=== PATIENT | female | born 1980 | race Caucasian/White ===

== ENCOUNTER 2020-10-27 23:55 | Emergency (ER) | payer SELFPAY ==
[2020-10-28 00:05] VITALS: BP 127/77; PULSE 96; RESP 18; TEMP 37.1; O2SAT 100
[2020-10-28] MEDS: DOXYCYCLINE HYCLATE 100 MG TABLET PO (00:10)
--- NOTE | 2020-10-28 07:00 | ED.SKABFB ---
HPI - Skin/Abscess/Foreign Bdy General Chief complaint: Skin/Abscess/Foreign Body Stated complaint: abcess on calf left side Time Seen by Provider: 10/27/20 23:57 Source: patient Mode of arrival: Ambulatory Limitations: no limitations History of Present Illness HPI narrative: 40F with history of vaping and injection of history presents with the chief complaint of abscesses on bilateral shins. She admits to having recently injected at both sites. She had the spontaneous drainage of a small abscess on her left anterior khalil. She also has some pain of right khalil, but no drainage. She admits to minimal surrounding erythema. She denies any systemic findings such as fever, chills, N/V. She admits to previous history of skin infections with MRSA. She is otherwise well and free of complaint. MD complaint: abscess/boil Onset (ago): day(s) Tetanus up to date: yes Location: LLE and RLE Severity: moderate Quality: aching Pain Consistency: constant Relieving factors: none Associated symptoms: denies other symptoms Treatments prior to arrival: attempted to drain pus at home Related Data Previous Rx's Medication Instructions Recorded albuterol sulfate [Ventolin HFA] 2 puff INH Q6HP PRN #1 ea 02/20/17 buprenorphine-naloxone 0.5 tab SUBLINGUAL QDAY #15 tab 05/01/17 nitrofurantoin monohyd/m-cryst 100 mg PO BID #10 cap 11/26/17 [Macrobid] doxycycline hyclate 100 mg PO BID #20 tab 10/28/20 Allergies Allergy/AdvReac Type Severity Reaction Status Date / Time No Known Allergies Allergy Uncoded 02/14/18 12:52 Review of Systems Constitutional Constitutional: Denies chills, Denies fatigue, Denies fever(s), Denies frequent falls, Denies lethargy and Denies weakness Eyes Eyes: Denies change in vision, Denies eye discharge, Denies irritation and Denies loss of vision ENT Ears, Nose, Mouth, and Throat: Denies change in voice, Denies dizziness, Denies neck pain, Denies sore throat and Denies throat swelling Cardiovascular Cardiovascular: Denies chest pain, Denies irregular heart rhythm, Denies lightheadedness, Denies palpitations, Denies dyspnea, Denies dyspnea on exertion and Denies orthopnea Respiratory Respiratory: Denies cough, Denies dyspnea, Denies dyspnea on exertion and Denies wheezing Gastrointestinal Gastrointestinal: Denies abdominal pain, Denies change in bowel habits, Denies diarrhea, Denies nausea and Denies vomiting Musculoskeletal Musculoskeletal: Denies neck pain and Denies numbness Integumentary/Breasts Skin/Breast: Denies pruritus, Reports erythema, Denies rash, Reports skin pain, Reports skin swelling and Reports wounds Neurologic Neurologic: Denies behavioral changes, Denies confusion, Denies dizziness, Denies frequent falls, Denies loss of vision, Denies numbness and Denies weakness Psychiatric Psychiatric: Denies anxiety, Denies behavioral changes, Denies confusion, Denies depression, Denies homicidal ideation and Denies suicidal ideation Endocrine Endocrine: Denies fatigue, Denies flushing and Denies palpitations Hematologic/Lymphatic Hematologic/Lymphatic: Denies easy bruising Allergic/Immunologic Allergic/Immunologic: Denies urticaria, Denies throat swelling and Denies wheezing Patient History tobacco type: vaping Substance Use Type: heroin Exam Narrative Exam Narrative: GEN: AOx3 and in mild distress EYES: Pupils are equal, round, and reactive to light and accommodation. Extraoccular muscles are intact bilaterally. There is no subconjunctival hemorrhage or exudate. CHEST: Lungs are clear to auscultation bilaterally and free of wheezes, rales, or rhonchi. Heart rate is regular rhythm, there are no murmurs, clicks, rubs, or gallops. There is no chest wall tenderness. ABD: Abdomen is soft and nontender. There is no guarding or rebound. Bowel sounds are normal in all 4 quadrants. There is no mass or organomegaly. EXT: Full painless ROM of all extremities with no loss of sensation or strength. SKIN: One small abscess on left anterior khalil, spontaneously drained, minimal surrounding erythema, no induration. 1.5cm area of erythema, induration. No fluctuance. No indication or need for I/D Otherwise warm, pink, and dry. No erythema or rash Initial Vital Signs Initial Vital Signs: Vital Signs Temperature 98.7 F 10/28/20 00:05 Pulse Rate 96 H 10/28/20 00:05 Respiratory Rate 18 10/28/20 00:05 Blood Pressure 127/77 10/28/20 00:05 Pulse Oximetry 100 10/28/20 00:05 Course Orders Ordered: Discontinued Medications Doxycycline Hyclate (Doxycycline Hyclate 100 Mg Tablet) 100 mg PO NOW ONE Stop: 10/28/20 00:05 Last Admin: 10/28/20 00:10 Dose: 100 mg Documented by: JOLLY Vital Signs Vital signs: Vital Signs - 8 hr 10/28/20 00:05 Temperature 98.7 F Pulse Rate 96 H Respiratory Rate 18 Blood Pressure 127/77 Pulse Oximetry 100 Discharge Plan Departure Patient Disposition: Home Clinical Impression: Abscess Instructions: DI for Skin Abscess Activity Restrictions/Additional Instructions: *You have been diagnosed with [superficial cutaneous abscess bilateral lower extremities] *What to do: *Take medications as directed: Prescription electronically transmitted to [facility] at your request *Follow up with your primary care provider in 2-3 days, call for an appointment. Let them know you were seen in the Emergency Department and that we ask that you be seen in follow up *Return to ER if you should have any new, worsening or concerning symptoms, such as [ ] Prescriptions: New doxycycline hyclate 100 mg tablet 100 mg PO BID Qty: 20 RF: 0 No Action albuterol sulfate [Ventolin HFA] 90 MCG/PUFF HFA aerosol inhaler 2 puff INH Q6HP PRNQty: 1 RF: 2 buprenorphine-naloxone 8 MG/2 MG tablet, sublingual 0.5 tab Sublingual QDAY Qty: 15 RF: 2 nitrofurantoin monohyd/m-cryst [Macrobid] 100 MG capsule 100 mg PO BID Qty: 10 RF: 0
== END 2020-10-28 00:30 | disposition home or self-care (01) ==
PROVIDERS: Emergency Provider Emergency Medicine
DX: L02.416 Cutaneous abscess of left lower limb (principal); L02.415 Cutaneous abscess of right lower limb
CPT/HCPCS: 99281; 99283

== ENCOUNTER 2022-08-30 21:33 | Emergency (ER) | payer SELFPAY ==
[2022-08-30 21:38] VITALS: BP 130/70; PULSE 84; RESP 22; TEMP 36.4; O2SAT 96; BMI 26.6
--- NOTE | 2022-08-30 22:04 | DI.CT.S_ITS ---
PROCEDURE: CT ANGIO CHEST PE PROTOCOL INDICATIONS: Dyspnea/cough/hemoptysis TECHNIQUE: After the administration of intravenous contrast, 2 mm thick sections acquired from the pulmonary apices to the posterior costophrenic angles. 3-dimensional maximum intensity projection (MIP) coronal and sagittal reformats were then acquired through the thorax. For radiation dose reduction, the following was used: automated exposure control, adjustment of mA and/or kV according to patient size. COMPARISON: [facility], CT, CT CHEST WITH CONTRAST, 01/05/2018, 12:58. FINDINGS: Image quality: Excellent. Pulmonary arteries: Pulmonary arteries are normal in size, and demonstrate no intraluminal filling defects to suggest central pulmonary embolism. Lower Neck: No lymphadenopathy by size criteria. Thyroid: Visualized thyroid demonstrates no discrete nodules. Axillae: No lymphadenopathy by size criteria. Chest Wall: There is a lobulated mass within the right breast measuring up to 3.0 x 2.4 cm in transverse dimension which appears new compared to the prior CT study. Bones: Visualized osseous structures demonstrate no suspicious lesions. Lungs and Airways: No acute consolidation. There is a right lower lobe 0.7 cm pulmonary nodule which appears similar to the prior CT. There are indistinct ground-glass opacities within the lung bases which are nonspecific but suggestive of pulmonary edema. The trachea and central airways are patent. Pleura: No pneumothorax or pleural effusions. Heart: Heart size is normal. No pericardial effusion. Thoracic Vessels: The thoracic aorta is normal in size. Mediastinum and Molly: No lymphadenopathy by size criteria. Esophagus: No wall thickening. No hiatal hernia. Abdomen: Visualized upper abdomen demonstrates multiple heterogeneous filling defects within the visualized gallbladder consistent with gallstones. No wall thickening or pericholecystic fluid. IMPRESSION: 1. No evidence of pulmonary embolism. 2. No acute airspace consolidation. 3. Lobulated right breast mass is new compared to the prior study and suspicious for neoplasm. Recommend further evaluation with mammography and dedicated breast ultrasound. Dictated by: Macario Crowley M.D. on 08/31/2022 at 0:01 Approved by: Macario Crowley M.D. on 08/31/2022 at 0:06
--- NOTE | 2022-08-30 22:05 | ED.URI ---
HPI - URI/Sore Throat General Chief Complaint: Upper Respiratory Symptoms Stated Complaint: thinks pneumonia Time Seen by Provider: 08/30/22 21:58 Source: patient Mode of arrival: Ambulatory History of Present Illness HPI Narrative: Patient here for hemoptysis/cough and occasional dyspnea. Patient states took home COVID test April 2022 and is positive for COVID. She never did see any medical providers for this. Never had x-rays or blood work done. Patient denies any history heart attack strokes or diabetes or blood clots in legs or lungs. Denies any chest pain. Has had whitish productive cough for the past 4 months but however today has had blood-tinged sputum. Is not on any blood thinners. Denies any back pain abdominal pain no syncope. No calf pain. Related Data Previous Rx's Medication Instructions Recorded albuterol sulfate 90 mcg/actuation 2 puff INH Q6HP PRN #1 ea 02/20/17 aerosol inhaler (Ventolin HFA) buprenorphine 8 mg-naloxone 2 mg 0.5 tab sublingual QDAY #15 tabs 05/01/17 sublingual tablet nitrofurantoin 100 mg PO BID #10 caps 11/26/17 monohydrate/macrocrystals 100 mg capsule (Macrobid) doxycycline hyclate 100 mg tablet 100 mg PO BID #20 tabs 10/28/20 benzonatate 100 mg capsule 100 mg PO TID PRN cough #20 caps 08/31/22 Allergies Allergy/AdvReac Type Severity Reaction Status Date / Time No Known Drug Allergies Allergy Verified 08/30/22 21:38 Review of Systems Review of Systems Narrative: GENERAL: Denies chills, fatigue, malaise, fever, sweats. HEENT: Denies sinus pain, ear pain, sore throat RESPIRATORY: Positive hemoptysis/dyspnea, cough CARDIOVASCULAR: Denies chest pain, palpitations GASTROINTESTINAL: Denies nausea, vomiting, abdominal pain : Denies dysuria, frequency, hematuria MUSCULOSKELETAL: denies muscle or bony pain SKIN: Denies rash, skin lesions NEUROLOGIC: Denies weakness, numbness ROS Unobtainable: All systems reviewed & are unremarkable except as noted in HPI and below Patient History Social History Smoking Status: Former smoker Smoking Status: Former smoker tobacco type: vaping Substance Use Type: former substance user and heroin Exam Narrative Exam Narrative: GENERAL: in no distress, not toxic not dyspneic HEAD: Normocephalic. EYES: Pupils equal round No scleral icterus. ENT: Mucous membranes moist. NECK: Trachea midline. CARDIOVASCULAR: Regular rate and rhythm without murmurs RESPIRATORY: Clear to auscultation. Breath sounds equal bilaterally. No wheezes, rales, or rhonchi. GASTROINTESTINAL: Abdomen soft, non-tender EXTREMITIES: No gross deformities. BACK: No flank tenderness. NEURO: AOx4. SKIN: Warm and dry PSYCH: Not anxious, is cooperative Initial Vital Signs Initial Vital Signs: Vital Signs Temperature 97.6 F 08/30/22 21:38 Pulse Rate 84 08/30/22 21:38 Respiratory Rate 22 08/30/22 21:38 Blood Pressure 130/70 08/30/22 21:38 Pulse Oximetry 96 08/30/22 21:38 Oxygen Delivery Method 08/30/22 21:38 Course Course Course Narrative: No new issues during course of stay Orders Ordered: ED Orders 08/30/22 22:04 CT angio chest PE protocol Stat 08/30/22 22:30 CBC Auto Diff [Complete Blood Count AUTO DIFF] Stat CMP [Comprehensive Metabolic Panel] Stat Test Serum,Qual Stat Discontinued Medications Sodium Chloride (Normal Saline 0.9%) 1,000 mls @ 1,000 mls/hr IV BOLUS ONE Stop: 08/30/22 23:02 Last Infusion: 08/31/22 00:08 Dose: 0 mls/hr Documented By: Admin: 08/30/22 22:45 Dose: 1,000 mls/hr Documented By: JACOB Reevaluation(s) Reevaluation #1: Reviewed results with patient. She is aware of the right breast mass from [address] scan abdomen and pelvis. She did not follow-up with mammogram or primary care. No family history of breast cancer. Referral for primary care and general surgery office given to patient. Cough medication prescription as well. Patient in no distress. Return precautions reviewed with her. Time: 00:37 Vital Signs Vital signs: Vital Signs - 8 hr 08/30/22 21:38 08/30/22 22:36 08/30/22 22:38 Temperature 97.6 F Pulse Rate 84 81 83 Respiratory Rate 22 Blood Pressure 130/70 Pulse Oximetry 96 96 97 Oxygen Delivery Method Room Air 08/30/22 22:38 08/30/22 22:58 08/30/22 22:58 Temperature Pulse Rate 82 Respiratory Rate Blood Pressure 131/60 121/77 Pulse Oximetry 97 Oxygen Delivery Method 08/30/22 23:00 08/30/22 23:00 08/30/22 23:30 Temperature Pulse Rate 84 Respiratory Rate Blood Pressure 113/69 117/58 L Pulse Oximetry 97 Oxygen Delivery Method 08/30/22 23:30 08/31/22 00:00 08/31/22 00:01 Temperature Pulse Rate 87 81 Respiratory Rate Blood Pressure 89/49 L Pulse Oximetry 96 95 Oxygen Delivery Method 08/31/22 00:01 08/31/22 00:30 08/31/22 00:30 Temperature Pulse Rate 85 76 Respiratory Rate Blood Pressure 91/55 L Pulse Oximetry 95 97 Oxygen Delivery Method MDM - URI/Sore Throat Differential Diagnosis Differential diagnosis: Likely upper respiratory infection, viral infection, bronchitis and other (Long-term COVID/PE/pneumonia/chronic bronchitis) Lab Data Result diagrams: 08/30/22 22:30 08/30/22 22:30 Labs: Lab Results 08/30/22 08/30/22 08/30/22 Range/Units 22:30 22:30 22:30 WBC 5.8 (4.5-11.0) X10^3/uL RBC 4.38 (4.0-5.2) X10^6/uL Hgb 12.1 (12.0-16.0) g/dL Hct 36.3 (36-46) % MCV 82.8 (80-100) fL MCH 27.6 (26-34) PG MCHC 33.3 (30-36) % RDW 14.6 (11.6-14.8) % Plt Count 245 (150-400) X10^3/uL Neut % (Auto) 52.5 (50-75) % Lymph % (Auto) 35.9 (25-40) % Gentry % (Auto) 7.7 (3-14) % Eos % (Auto) 3.3 (2-4) % Baso % (Auto) 0.6 (0-2) % Neut # (Auto) 3100 (9462-7123) /uL Lymph # (Auto) 2100 (1972-6246) /uL Gentry # (Auto) 400 (0-900) /uL Eos # (Auto) 200 (0-450) /uL Baso # (Auto) 0 (0-100) /uL Sodium 139 (137-145) mmol/L Potassium 3.9 (3.4-5.1) mmol/L Chloride 104 (98-107) mmol/L Carbon Dioxide 29 (22-32) mmol/L BUN 14 (7-17) mg/dL Creatinine 0.69 (0.52-1.04) mg/dL Estimated GFR > 60 (>60) mL/min BUN/Creatinine Ratio 20.3 (6-22) Glucose 124 H (70-100) mg/dL Calcium 8.2 L (8.4-10.2) mg/dL Total Bilirubin 0.2 (0.2-1.3) mg/dL AST 22 (14-36) IU/L ALT 17 (<35) IU/L Alkaline Phosphatase 50 (38-126) U/L Total Protein 7.1 (6.3-8.2) g/dL Albumin 3.9 (3.5-5.0) g/dL Globulin 3.2 (1.7-4.1) g/dL Albumin/Globulin Ratio 1.2 (1.0-2.8) Serum , Qual Negative (Negative) Imaging Data CT scan - chest: Radiologist's Impression: [place] [address] CT Scan Report Signed Patient: Annie Garcia MR#: [id number] : 1980 Acct:[id number] Age/Sex: 42 / F Date of Service: 08/30/22 Loc: ED Accession Number: [id number] ?? Procedure: CT angio chest PE protocol Ordering Provider: Huy Winter MD PROCEDURE:? CT ANGIO CHEST PE PROTOCOL ? INDICATIONS:? Dyspnea/cough/hemoptysis ? TECHNIQUE:? After the administration of intravenous contrast, 2 mm thick sections acquired from the pulmonary apices to the posterior costophrenic angles.? 3-dimensional maximum intensity projection (MIP) coronal and sagittal reformats were then acquired through the thorax.? For radiation dose reduction, the following was used:? automated exposure control, adjustment of mA and/or kV according to patient size.? ? COMPARISON:? [facility], CT, CT CHEST WITH CONTRAST, 01/05/2018, 12:58. ? FINDINGS:? Image quality:? Excellent.? ? Pulmonary arteries:? Pulmonary arteries are normal in size, and demonstrate no intraluminal filling defects to suggest central pulmonary embolism.? ? Lower Neck: No lymphadenopathy by size criteria. Thyroid:? Visualized thyroid demonstrates no discrete nodules. Axillae: No lymphadenopathy by size criteria. Chest Wall:? There is a lobulated mass within the right breast measuring up to 3.0 x 2.4 cm in transverse dimension which appears new compared to the prior CT study. Bones: Visualized osseous structures demonstrate no suspicious lesions. ? Lungs and Airways:? No acute consolidation.? There is a right lower lobe 0.7 cm pulmonary nodule which appears similar to the prior CT.? There are indistinct ground-glass opacities within the lung bases which are nonspecific but suggestive of pulmonary edema.? The trachea and central airways are patent. Pleura: No pneumothorax or pleural effusions.? ? Heart: Heart size is normal.? No pericardial effusion. Thoracic Vessels: The thoracic aorta is normal in size.? Mediastinum and Molly: No lymphadenopathy by size criteria. Esophagus: No wall thickening. No hiatal hernia. ? Abdomen:? Visualized upper abdomen demonstrates multiple heterogeneous filling defects within the visualized gallbladder consistent with gallstones.? No wall thickening or pericholecystic fluid. ? IMPRESSION:? ? 1. No evidence of pulmonary embolism. ? 2. No acute airspace consolidation. ? 3. Lobulated right breast mass is new compared to the prior study and suspicious for neoplasm.? Recommend further evaluation with mammography and dedicated breast ultrasound. ? ? ? Dictated by: Macario Crowley M.D. on 08/31/2022 at 0:01 ? ? Approved by: Macario Crowley M.D. on 08/31/2022 at 0:06 ? MDM Narrative Medical decision making narrative: Appropriate for discharge home. Exam and laboratory studies and imaging otherwise reassuring. Not toxic at discharge. I did review with patient concerning finding on CT scan of the right breast, no family history of breast cancer but patient states she did not follow up with mammogram after she was told of the findings [address] scan abdomen pelvis. She does not have a family doctor, I did give a referral to General surgery as well as primary care referral line. Not toxic at discharge, return precautions reviewed with her. She desires discharge home. Discharge Plan Departure Patient Disposition: Home Clinical Impression: Bronchitis, Breast mass, right Instructions: DI for Chronic Bronchitis, DI for Breast Mass -- Uncertain Cause Activity Restrictions/Additional Instructions: See family doctor within a week for re-evaluation breast finding on CT scan. Call provided primary care referral phone number to establish family doctor. Call [phone], or call provided general surgery office/provider, you will need to schedule outpatient mammogram. Cough medication has been sent to your pharmacy to [facility] in the morning. Return if worse if any questions or concerns. Prescriptions: New benzonatate 100 mg capsule 100 mg PO TID PRN (Reason: cough) Qty: 20 0RF No Action albuterol sulfate [Ventolin HFA] 90 MCG/PUFF HFA aerosol inhaler 2 puff INH Q6HP PRNQty: 1 2RF buprenorphine-naloxone 8 MG/2 MG tablet, sublingual 0.5 tab Sublingual QDAY Qty: 15 2RF nitrofurantoin monohyd/m-cryst [Macrobid] 100 MG capsule 100 mg PO BID Qty: 10 0RF doxycycline hyclate 100 mg tablet 100 mg PO BID Qty: 20 0RF Referrals: Prince Wilder MD [Physician] - Visit Report Forms: Patient Portal/API
[2022-08-30 22:36] VITALS: PULSE 81; O2SAT 96
[2022-08-30 22:38] VITALS: BP 131/60; PULSE 83; O2SAT 97
[2022-08-30] MEDS: SODIUM CHLORIDE 0.9% 1,000 ML 1000 ML IV (22:45)
[2022-08-30 22:48] LABS: Add Manual Diff / Slide Review NO; Basophils Absolute Auto 0 /uL (0-100); Basophils Percent Auto 0.6 % (0-2); Eosinophils Absolute Auto 200 /uL (0-450); Eosinophils Percent Auto 3.3 % (2-4); Hematocrit 36.3 % (36-46); Hemoglobin 12.1 g/dL (12.0-16.0); Lymphocytes Absolute Auto 2100 /uL (1100-4500); Lymphocytes Percent Auto 35.9 % (25-40); Mean Corpuscular HGB Conc 33.3 % (30-36); Mean Corpuscular Hemoglobin 27.6 PG (26-34); Mean Corpuscular Volume 82.8 fL (80-100); Monocytes Absolute Auto 400 /uL (0-900); Monocytes Percent Auto 7.7 % (3-14); Neutrophils Absolute Auto 3100 /uL (1500-7000); Neutrophils Percent Auto 52.5 % (50-75); Platelet Count 245 X10^3/uL (150-400); Red Blood Cell Count 4.38 X10^6/uL (4.0-5.2); Red Cell Distribution Width 14.6 % (11.6-14.8); White Blood Cell Count 5.8 X10^3/uL (4.5-11.0)
[2022-08-30 22:54] LABS: Alanine Aminotransferase 17 IU/L (<35); Albumin 3.9 g/dL (3.5-5.0); Albumin Globulin Ratio 1.2 (1.0-2.8); Alkaline Phosphatase 50 U/L (38-126); Aspartate Aminotransferase 22 IU/L (14-36); BUN Creatinine Ratio 20.3 (6-22); Bilirubin Total 0.2 mg/dL (0.2-1.3); Blood Urea Nitrogen 14 mg/dL (7-17); Calcium 8.2 mg/dL (8.4-10.2); Carbon Dioxide 29 mmol/L (22-32); Chloride 104 mmol/L (98-107); Estimated Glomerular Filt Rate > 60 mL/min (>60); Globulin 3.2 g/dL (1.7-4.1); Glucose 124 mg/dL (70-100); HEMOLYSIS < 15 (0-50); Potassium 3.9 mmol/L (3.4-5.1); Sodium 139 mmol/L (137-145); Total Protein 7.1 g/dL (6.3-8.2)
[2022-08-30 22:58] VITALS: BP 121/77; PULSE 82; O2SAT 97
[2022-08-30 23:00] VITALS: BP 113/69; PULSE 84; O2SAT 97
[2022-08-30 23:05] LABS: Pregnancy Test Serum,Qual Negative (Negative)
[2022-08-30 23:30] VITALS: BP 117/58; PULSE 87; O2SAT 96
[2022-08-31] VITALS: PULSE 81; O2SAT 95
[2022-08-31 00:01] VITALS: BP 89/49; PULSE 85; O2SAT 95
[2022-08-31 00:30] VITALS: BP 91/55; PULSE 76; O2SAT 97
== END 2022-08-31 00:49 | disposition home or self-care (01) ==
PROVIDERS: Emergency Provider Emergency Medicine
DX: J40 Bronchitis, not specified as acute or chronic (principal); N63.10 Unspecified lump in the right breast, unspecified quadrant; Z86.16 Personal history of COVID-19
CPT/HCPCS: 36415; 71275; 80053; 84703; 85025; 99284; Q9967

== ENCOUNTER 2022-09-10 01:03 | Inpatient (IN) | payer SELFPAY ==
[2022-09-10] VITALS (58 sets, daily range): BP systolic 101–137; BP diastolic 53–96; PULSE 79–130; RESP 16–40; TEMP 37–37.6; O2SAT 89–100; BMI 26.6; BMI 29.1
--- NOTE | 2022-09-10 01:28 | DI.RAD.S_ITS ---
PROCEDURE: XR CHEST 2V INDICATIONS: shortness of breath TECHNIQUE: 2 views of the chest were acquired. COMPARISON: [facility], , CHEST 2 VIEW, 04/10/2012, 10:37. FINDINGS: Surgical changes and devices: None. Lungs and pleura: Lungs are clear. No pleural effusions or pneumothorax. Mediastinum: Mediastinal contours are normal. Heart size is normal. Bones and chest wall: No suspicious bony abnormalities. Soft tissues appear unremarkable. IMPRESSION: No acute cardiopulmonary findings Approved by: Ezekiel Mcarthur M.D. on 09/10/2022 at 7:42
[2022-09-10] MEDS: ALBUTEROL 2.5 MG/3 ML NEB (ADULT) INH (02:01)
--- NOTE | 2022-09-10 02:02 | ED.SOB ---
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 Parainfluenza 1 (PCR) Not detected (Not Detect) Parainfluenza 2 (PCR) Not detected (Not Detect) Parainfluenza 3 (PCR) Not detected (Not Detect) Parainfluenza 4 (PCR) Not detected (Not Detect) RSV (PCR) Not detected (Not Detect) Entero/Rhino (PCR) Not detected (Not Detect) 09/10/22 09/10/22 09/10/22 Range/Units 06:38 11:30 13:30 WBC (4.5-11.0) X10^3/uL RBC (4.0-5.2) X10^6/uL Hgb (12.0-16.0) g/dL Hct (36-46) % MCV (80-100) fL MCH (26-34) PG MCHC (30-36) % RDW (11.6-14.8) % Plt Count (150-400) X10^3/uL Neut % (Auto) (50-75) % Lymph % (Auto) (25-40) % [place] % (Auto) (3-14) % Eos % (Auto) (2-4) % Baso % (Auto) (0-2) % Neut # (Auto) (3400-8391) /uL Lymph # (Auto) (3653-2661) /uL [place] # (Auto) (0-900) /uL Eos # (Auto) (0-450) /uL Baso # (Auto) (0-100) /uL APTT 85 H* D (26-36) SECONDS D-Dimer (<500) ng/ml ABG pH (7.35-7.45) ABG pCO2 (35-45) mmHg ABG pO2 (80-100) mmHg ABG HCO3 (22-26) mmol/L ABG Total CO2 (21-31) mmol/L ABG O2 Saturation (95-100) % ABG Base Excess (-2-2) mmol/L FiO2 Sodium (137-145) mmol/L Potassium (3.4-5.1) mmol/L Chloride (98-107) mmol/L Carbon Dioxide (22-32) mmol/L BUN (7-17) mg/dL Creatinine (0.52-1.04) mg/dL Estimated GFR (>60) mL/min BUN/Creatinine Ratio (6-22) Glucose (70-100) mg/dL Lactate (0.7-2.1) mmol/L Calcium (8.4-10.2) mg/dL Total Bilirubin (0.2-1.3) mg/dL AST (14-36) IU/L ALT (<35) IU/L Alkaline Phosphatase (38-126) U/L Total Creatine Kinase (30-135) U/L CK-MB (CK-2) CK-MB (CK-2) Rel Index Troponin I < 0.012 (0.01-0.034) ng/mL NT-Pro-B Natriuret Pep (<125) pg/mL Total Protein (6.3-8.2) g/dL Albumin (3.5-5.0) g/dL Globulin (1.7-4.1) g/dL Albumin/Globulin Ratio (1.0-2.8) Lipase (23-300) U/L Serum , Qual Negative (Negative) Chlamy pneumoniae PCR (Not Detect) Adenovirus (PCR) (Not Detect) B. pertussis DNA (PCR) (Not Detecte) B.parapertussis DNA PCR (Not Detecte) Coronavirus OC43 (PCR) (Not Detect) Coronavirus HKU1 (PCR) (Not Detect) Coronavirus 229E (PCR) (Not Detect) SARS-CoV-2 (PCR) (Not Detecte) Coronavirus NL63 (PCR) (Not Detect) Human Metapneumovir PCR (Not Detect) Influenza Type A (PCR) (Not Detect) Influenza Type B (PCR) (Not Detect) M. pneumoniae (PCR) (Not Detect) Parainfluenza 1 (PCR) (Not Detect) Parainfluenza 2 (PCR) (Not Detect) Parainfluenza 3 (PCR) (Not Detect) Parainfluenza 4 (PCR) (Not Detect) RSV (PCR) (Not Detect) Entero/Rhino (PCR) (Not Detect) 09/10/22 Range/Units 13:47 WBC (4.5-11.0) X10^3/uL RBC (4.0-5.2) X10^6/uL Hgb (12.0-16.0) g/dL Hct (36-46) % MCV (80-100) fL MCH (26-34) PG MCHC (30-36) % RDW (11.6-14.8) % Plt Count (150-400) X10^3/uL Neut % (Auto) (50-75) % Lymph % (Auto) (25-40) % [place] % (Auto) (3-14) % Eos % (Auto) (2-4) % Baso % (Auto) (0-2) % Neut # (Auto) (7437-9410) /uL Lymph # (Auto) (1118-5891) /uL [place] # (Auto) (0-900) /uL Eos # (Auto) (0-450) /uL Baso # (Auto) (0-100) /uL APTT (26-36) SECONDS D-Dimer (<500) ng/ml ABG pH 7.43 (7.35-7.45) ABG pCO2 36.5 (35-45) mmHg ABG pO2 74 L (80-100) mmHg ABG HCO3 24 (22-26) mmol/L ABG Total CO2 25 (21-31) mmol/L ABG O2 Saturation 95 (95-100) % ABG Base Excess 0.0 (-2-2) mmol/L FiO2 75 Sodium (137-145) mmol/L Potassium (3.4-5.1) mmol/L Chloride (98-107) mmol/L Carbon Dioxide (22-32) mmol/L BUN (7-17) mg/dL Creatinine (0.52-1.04) mg/dL Estimated GFR (>60) mL/min BUN/Creatinine Ratio (6-22) Glucose (70-100) mg/dL Lactate (0.7-2.1) mmol/L Calcium (8.4-10.2) mg/dL Total Bilirubin (0.2-1.3) mg/dL AST (14-36) IU/L ALT (<35) IU/L Alkaline Phosphatase (38-126) U/L Total Creatine Kinase (30-135) U/L CK-MB (CK-2) CK-MB (CK-2) Rel Index Troponin I (0.01-0.034) ng/mL NT-Pro-B Natriuret Pep (<125) pg/mL Total Protein (6.3-8.2) g/dL Albumin (3.5-5.0) g/dL Globulin (1.7-4.1) g/dL Albumin/Globulin Ratio (1.0-2.8) Lipase (23-300) U/L Serum , Qual (Negative) Chlamy pneumoniae PCR (Not Detect) Adenovirus (PCR) (Not Detect) B. pertussis DNA (PCR) (Not Detecte) B.parapertussis DNA PCR (Not Detecte) Coronavirus OC43 (PCR) (Not Detect) Coronavirus HKU1 (PCR) (Not Detect) Coronavirus 229E (PCR) (Not Detect) SARS-CoV-2 (PCR) (Not Detecte) Coronavirus NL63 (PCR) (Not Detect) Human Metapneumovir PCR (Not Detect) Influenza Type A (PCR) (Not Detect) Influenza Type B (PCR) (Not Detect) M. pneumoniae (PCR) (Not Detect) Parainfluenza 1 (PCR) (Not Detect) Parainfluenza 2 (PCR) (Not Detect) Parainfluenza 3 (PCR) (Not Detect) Parainfluenza 4 (PCR) (Not Detect) RSV (PCR) (Not Detect) Entero/Rhino (PCR) (Not Detect) Imaging Data Chest x-ray: Radiologist's Impression: No airspace disease, bronchial wall thickening which is nonspecific. ECG Data Attestation: I personally reviewed and interpreted this ECG as follows: Prior ECG tracings: not available for review Interpretation: Sinus rhythm rate 87 AL 152 QRS is 78 QTC 450. No acute ST elevation or depression appreciated. No prior for comparison MDM Narrative Medical decision making narrative: Patient does have some improvement in her breathing with albuterol. Plan for DuoNeb, 20 mg albuterol and Solu-Medrol. Respiratory panel, cardiac workup including D-dimer. Patient did have a CTA which was negative the end of August but patient is having some hypoxia with no known asthma history. She does have a history of vaping so this could be contributing. Chest x-ray does not show obvious pneumothorax or acute process, some nonspecific bronchial wall thickening. Patient had improvement of her symptoms with albuterol, DuoNeb and Solu-Medrol but is still hypoxic placed on oxygen but was still hypoxic was placed on high-flow O2 and had ABG prior to this which shows primary respiratory alkalosis with a PO2 of 59, pH of 7.427, pCO2 of 37 and bicarb of 24. Patient's troponin and BNP are not elevated D-dimer is 707, patient's CBC, CMP and respiratory panel do not show clear source. Lactate was negative. Patient did have some wheeze on exam and it has improved with nebs. She is moving air appropriately on examination. We had difficulty with IV access so unable to obtain CT PE but patient was initiated on heparin for potential pulmonary emboli, respiratory panel is negative today for COVID, influenza or other viral illnesses. Patient has some discomfort with pressure from the high-flow but she states her breathing feels much improved. She did have some pain medicine in her back discomfort resolved. Plan for admission to ICU, we did difficulty with IV access for CT PE but patient does have an IV. She is receiving heparin. She is much more comfortable currently on high-flow on repeat evaluation and awaiting DI service for mid or PICC line to be placed. Discussed with hospitalist service, nurse practitioner Oswald, she asked that we hold the patient until CT angio was obtained in case there is right heart strain and a large PE that would require intervention as this would require transfer. Patient signed out to Dr. Frankel while awaiting DI for additional access and CTA. <Briseida Frankle, DO - Last Filed: 09/10/22 15:12> Lab Data Labs: Lab Results 09/10/22 09/10/22 09/10/22 Range/Units 02:24 02:24 02:24 WBC 10.1 (4.5-11.0) X10^3/uL RBC 4.78 (4.0-5.2) X10^6/uL Hgb 13.2 (12.0-16.0) g/dL Hct 40.0 (36-46) % MCV 83.6 (80-100) fL MCH 27.5 (26-34) PG MCHC 32.9 (30-36) % RDW 14.3 (11.6-14.8) % Plt Count 288 (150-400) X10^3/uL Neut % (Auto) 68.9 (50-75) % Lymph % (Auto) 23.1 L (25-40) % [place] % (Auto) 4.7 (3-14) % Eos % (Auto) 1.3 L (2-4) % Baso % (Auto) 2.0 (0-2) % Neut # (Auto) 6900 (5092-5172) /uL Lymph # (Auto) 2300 (5399-1141) /uL [place] # (Auto) 500 (0-900) /uL Eos # (Auto) 100 (0-450) /uL Baso # (Auto) 200 H (0-100) /uL APTT (26-36) SECONDS D-Dimer (<500) ng/ml ABG pH (7.35-7.45) ABG pCO2 (35-45) mmHg ABG pO2 (80-100) mmHg ABG HCO3 (22-26) mmol/L ABG Total CO2 (21-31) mmol/L ABG O2 Saturation (95-100) % ABG Base Excess (-2-2) mmol/L FiO2 Sodium 139 (137-145) mmol/L Potassium 4.0 (3.4-5.1) mmol/L Chloride 102 (98-107) mmol/L Carbon Dioxide 28 (22-32) mmol/L BUN 16 (7-17) mg/dL Creatinine 0.74 (0.52-1.04) mg/dL Estimated GFR > 60 (>60) mL/min BUN/Creatinine Ratio 21.6 (6-22) Glucose 107 H (70-100) mg/dL Lactate 0.9 (0.7-2.1) mmol/L Calcium 8.7 (8.4-10.2) mg/dL Total Bilirubin 0.4 (0.2-1.3) mg/dL AST 24 (14-36) IU/L ALT 17 (<35) IU/L Alkaline Phosphatase 69 (38-126) U/L Total Creatine Kinase (30-135) U/L CK-MB (CK-2) CK-MB (CK-2) Rel Index Troponin I (0.01-0.034) ng/mL NT-Pro-B Natriuret Pep (<125) pg/mL Total Protein 8.2 (6.3-8.2) g/dL Albumin 4.4 (3.5-5.0) g/dL Globulin 3.8 (1.7-4.1) g/dL Albumin/Globulin Ratio 1.2 (1.0-2.8) Lipase (23-300) U/L Serum , Qual (Negative) Chlamy pneumoniae PCR (Not Detect) Adenovirus (PCR) (Not Detect) B. pertussis DNA (PCR) (Not Detecte) B.parapertussis DNA PCR (Not Detecte) Coronavirus OC43 (PCR) (Not Detect) Coronavirus HKU1 (PCR) (Not Detect) Coronavirus 229E (PCR) (Not Detect) SARS-CoV-2 (PCR) (Not Detecte) Coronavirus NL63 (PCR) (Not Detect) Human Metapneumovir PCR (Not Detect) Influenza Type A (PCR) (Not Detect) Influenza Type B (PCR) (Not Detect) M. pneumoniae (PCR) (Not Detect) Parainfluenza 1 (PCR) (Not Detect) Parainfluenza 2 (PCR) (Not Detect) Parainfluenza 3 (PCR) (Not Detect) Parainfluenza 4 (PCR) (Not Detect) RSV (PCR) (Not Detect) Entero/Rhino (PCR) (Not Detect) 09/10/22 09/10/22 09/10/22 Range/Units 02:24 02:24 02:24 WBC (4.5-11.0) X10^3/uL RBC (4.0-5.2) X10^6/uL Hgb (12.0-16.0) g/dL Hct (36-46) % MCV (80-100) fL MCH (26-34) PG MCHC (30-36) % RDW (11.6-14.8) % Plt Count (150-400) X10^3/uL Neut % (Auto) (50-75) % Lymph % (Auto) (25-40) % [place] % (Auto) (3-14) % Eos % (Auto) (2-4) % Baso % (Auto) (0-2) % Neut # (Auto) (8772-8164) /uL Lymph # (Auto) (7076-5932) /uL [place] # (Auto) (0-900) /uL Eos # (Auto) (0-450) /uL Baso # (Auto) (0-100) /uL APTT (26-36) SECONDS D-Dimer 707 H (<500) ng/ml ABG pH (7.35-7.45) ABG pCO2 (35-45) mmHg ABG pO2 (80-100) mmHg ABG HCO3 (22-26) mmol/L ABG Total CO2 (21-31) mmol/L ABG O2 Saturation (95-100) % ABG Base Excess (-2-2) mmol/L FiO2 Sodium (137-145) mmol/L Potassium (3.4-5.1) mmol/L Chloride (98-107) mmol/L Carbon Dioxide (22-32) mmol/L BUN (7-17) mg/dL Creatinine (0.52-1.04) mg/dL Estimated GFR (>60) mL/min BUN/Creatinine Ratio (6-22) Glucose (70-100) mg/dL Lactate (0.7-2.1) mmol/L Calcium (8.4-10.2) mg/dL Total Bilirubin (0.2-1.3) mg/dL AST (14-36) IU/L ALT (<35) IU/L Alkaline Phosphatase (38-126) U/L Total Creatine Kinase 58 (30-135) U/L CK-MB (CK-2) TNP CK-MB (CK-2) Rel Index TNP Troponin I < 0.012 (0.01-0.034) ng/mL NT-Pro-B Natriuret Pep 20 (<125) pg/mL Total Protein (6.3-8.2) g/dL Albumin (3.5-5.0) g/dL Globulin (1.7-4.1) g/dL Albumin/Globulin Ratio (1.0-2.8) Lipase 88 (23-300) U/L Serum , Qual (Negative) Chlamy pneumoniae PCR (Not Detect) Adenovirus (PCR) (Not Detect) B. pertussis DNA (PCR) (Not Detecte) B.parapertussis DNA PCR (Not Detecte) Coronavirus OC43 (PCR) (Not Detect) Coronavirus HKU1 (PCR) (Not Detect) Coronavirus 229E (PCR) (Not Detect) SARS-CoV-2 (PCR) (Not Detecte) Coronavirus NL63 (PCR) (Not Detect) Human Metapneumovir PCR (Not Detect) Influenza Type A (PCR) (Not Detect) Influenza Type B (PCR) (Not Detect) M. pneumoniae (PCR) (Not Detect) Parainfluenza 1 (PCR) (Not Detect) Parainfluenza 2 (PCR) (Not Detect) Parainfluenza 3 (PCR) (Not Detect) Parainfluenza 4 (PCR) (Not Detect) RSV (PCR) (Not Detect) Entero/Rhino (PCR) (Not Detect) 09/10/22 09/10/22 09/10/22 Range/Units 02:24 02:24 03:28 WBC (4.5-11.0) X10^3/uL RBC (4.0-5.2) X10^6/uL Hgb (12.0-16.0) g/dL Hct (36-46) % MCV (80-100) fL MCH (26-34) PG MCHC (30-36) % RDW (11.6-14.8) % Plt Count (150-400) X10^3/uL Neut % (Auto) (50-75) % Lymph % (Auto) (25-40) % [place] % (Auto) (3-14) % Eos % (Auto) (2-4) % Baso % (Auto) (0-2) % Neut # (Auto) (1402-2061) /uL Lymph # (Auto) (4065-3058) /uL [place] # (Auto) (0-900) /uL Eos # (Auto) (0-450) /uL Baso # (Auto) (0-100) /uL APTT 25 L (26-36) SECONDS D-Dimer (<500) ng/ml ABG pH 7.43 (7.35-7.45) ABG pCO2 37.3 (35-45) mmHg ABG pO2 59 L (80-100) mmHg ABG HCO3 25 (22-26) mmol/L ABG Total CO2 26 (21-31) mmol/L ABG O2 Saturation 91 L (95-100) % ABG Base Excess 0.0 (-2-2) mmol/L FiO2 Sodium (137-145) mmol/L Potassium (3.4-5.1) mmol/L Chloride (98-107) mmol/L Carbon Dioxide (22-32) mmol/L BUN (7-17) mg/dL Creatinine (0.52-1.04) mg/dL Estimated GFR (>60) mL/min BUN/Creatinine Ratio (6-22) Glucose (70-100) mg/dL Lactate (0.7-2.1) mmol/L Calcium (8.4-10.2) mg/dL Total Bilirubin (0.2-1.3) mg/dL AST (14-36) IU/L ALT (<35) IU/L Alkaline Phosphatase (38-126) U/L Total Creatine Kinase (30-135) U/L CK-MB (CK-2) CK-MB (CK-2) Rel Index Troponin I (0.01-0.034) ng/mL NT-Pro-B Natriuret Pep (<125) pg/mL Total Protein (6.3-8.2) g/dL Albumin (3.5-5.0) g/dL Globulin (1.7-4.1) g/dL Albumin/Globulin Ratio (1.0-2.8) Lipase (23-300) U/L Serum , Qual (Negative) Chlamy pneumoniae PCR Not detected (Not Detect) Adenovirus (PCR) Not detected (Not Detect) B. pertussis DNA (PCR) Not detected (Not Detecte) B.parapertussis DNA PCR Not detected (Not Detecte) Coronavirus OC43 (PCR) Not detected (Not Detect) Coronavirus HKU1 (PCR) Not detected (Not Detect) Coronavirus 229E (PCR) Not detected (Not Detect) SARS-CoV-2 (PCR) Not detected (Not Detecte) Coronavirus NL63 (PCR) Not detected (Not Detect) Human Metapneumovir PCR Not detected (Not Detect) Influenza Type A (PCR) Not detected (Not Detect) Influenza Type B (PCR) Not detected (Not Detect) M. pneumoniae (PCR) Not detected (Not Detect) Parainfluenza 1 (PCR) Not detected (Not Detect) Parainfluenza 2 (PCR) Not detected (Not Detect) Parainfluenza 3 (PCR) Not detected (Not Detect) Parainfluenza 4 (PCR) Not detected (Not Detect) RSV (PCR) Not detected (Not Detect) Entero/Rhino (PCR) Not detected (Not Detect) 09/10/22 09/10/22 09/10/22 Range/Units 06:38 11:30 13:30 WBC (4.5-11.0) X10^3/uL RBC (4.0-5.2) X10^6/uL Hgb (12.0-16.0) g/dL Hct (36-46) % MCV (80-100) fL MCH (26-34) PG MCHC (30-36) % RDW (11.6-14.8) % Plt Count (150-400) X10^3/uL Neut % (Auto) (50-75) % Lymph % (Auto) (25-40) % [place] % (Auto) (3-14) % Eos % (Auto) (2-4) % Baso % (Auto) (0-2) % Neut # (Auto) (7545-0029) /uL Lymph # (Auto) (1906-4397) /uL [place] # (Auto) (0-900) /uL Eos # (Auto) (0-450) /uL Baso # (Auto) (0-100) /uL APTT 85 H* D (26-36) SECONDS D-Dimer (<500) ng/ml ABG pH (7.35-7.45) ABG pCO2 (35-45) mmHg ABG pO2 (80-100) mmHg ABG HCO3 (22-26) mmol/L ABG Total CO2 (21-31) mmol/L ABG O2 Saturation (95-100) % ABG Base Excess (-2-2) mmol/L FiO2 Sodium (137-145) mmol/L Potassium (3.4-5.1) mmol/L Chloride (98-107) mmol/L Carbon Dioxide (22-32) mmol/L BUN (7-17) mg/dL Creatinine (0.52-1.04) mg/dL Estimated GFR (>60) mL/min BUN/Creatinine Ratio (6-22) Glucose (70-100) mg/dL Lactate (0.7-2.1) mmol/L Calcium (8.4-10.2) mg/dL Total Bilirubin (0.2-1.3) mg/dL AST (14-36) IU/L ALT (<35) IU/L Alkaline Phosphatase (38-126) U/L Total Creatine Kinase (30-135) U/L CK-MB (CK-2) CK-MB (CK-2) Rel Index Troponin I < 0.012 (0.01-0.034) ng/mL NT-Pro-B Natriuret Pep (<125) pg/mL Total Protein (6.3-8.2) g/dL Albumin (3.5-5.0) g/dL Globulin (1.7-4.1) g/dL Albumin/Globulin Ratio (1.0-2.8) Lipase (23-300) U/L Serum , Qual Negative (Negative) Chlamy pneumoniae PCR (Not Detect) Adenovirus (PCR) (Not Detect) B. pertussis DNA (PCR) (Not Detecte) B.parapertussis DNA PCR (Not Detecte) Coronavirus OC43 (PCR) (Not Detect) Coronavirus HKU1 (PCR) (Not Detect) Coronavirus 229E (PCR) (Not Detect) SARS-CoV-2 (PCR) (Not Detecte) Coronavirus NL63 (PCR) (Not Detect) Human Metapneumovir PCR (Not Detect) Influenza Type A (PCR) (Not Detect) Influenza Type B (PCR) (Not Detect) M. pneumoniae (PCR) (Not Detect) Parainfluenza 1 (PCR) (Not Detect) Parainfluenza 2 (PCR) (Not Detect) Parainfluenza 3 (PCR) (Not Detect) Parainfluenza 4 (PCR) (Not Detect) RSV (PCR) (Not Detect) Entero/Rhino (PCR) (Not Detect) 09/10/22 Range/Units 13:47 WBC (4.5-11.0) X10^3/uL RBC (4.0-5.2) X10^6/uL Hgb (12.0-16.0) g/dL Hct (36-46) % MCV (80-100) fL MCH (26-34) PG MCHC (30-36) % RDW (11.6-14.8) % Plt Count (150-400) X10^3/uL Neut % (Auto) (50-75) % Lymph % (Auto) (25-40) % [place] % (Auto) (3-14) % Eos % (Auto) (2-4) % Baso % (Auto) (0-2) % Neut # (Auto) (5597-7621) /uL Lymph # (Auto) (9397-4762) /uL [place] # (Auto) (0-900) /uL Eos # (Auto) (0-450) /uL Baso # (Auto) (0-100) /uL APTT (26-36) SECONDS D-Dimer (<500) ng/ml ABG pH 7.43 (7.35-7.45) ABG pCO2 36.5 (35-45) mmHg ABG pO2 74 L (80-100) mmHg ABG HCO3 24 (22-26) mmol/L ABG Total CO2 25 (21-31) mmol/L ABG O2 Saturation 95 (95-100) % ABG Base Excess 0.0 (-2-2) mmol/L FiO2 75 Sodium (137-145) mmol/L Potassium (3.4-5.1) mmol/L Chloride (98-107) mmol/L Carbon Dioxide (22-32) mmol/L BUN (7-17) mg/dL Creatinine (0.52-1.04) mg/dL Estimated GFR (>60) mL/min BUN/Creatinine Ratio (6-22) Glucose (70-100) mg/dL Lactate (0.7-2.1) mmol/L Calcium (8.4-10.2) mg/dL Total Bilirubin (0.2-1.3) mg/dL AST (14-36) IU/L ALT (<35) IU/L Alkaline Phosphatase (38-126) U/L Total Creatine Kinase (30-135) U/L CK-MB (CK-2) CK-MB (CK-2) Rel Index Troponin I (0.01-0.034) ng/mL NT-Pro-B Natriuret Pep (<125) pg/mL Total Protein (6.3-8.2) g/dL Albumin (3.5-5.0) g/dL Globulin (1.7-4.1) g/dL Albumin/Globulin Ratio (1.0-2.8) Lipase (23-300) U/L Serum , Qual (Negative) Chlamy pneumoniae PCR (Not Detect) Adenovirus (PCR) (Not Detect) B. pertussis DNA (PCR) (Not Detecte) B.parapertussis DNA PCR (Not Detecte) Coronavirus OC43 (PCR) (Not Detect) Coronavirus HKU1 (PCR) (Not Detect) Coronavirus 229E (PCR) (Not Detect) SARS-CoV-2 (PCR) (Not Detecte) Coronavirus NL63 (PCR) (Not Detect) Human Metapneumovir PCR (Not Detect) Influenza Type A (PCR) (Not Detect) Influenza Type B (PCR) (Not Detect) M. pneumoniae (PCR) (Not Detect) Parainfluenza 1 (PCR) (Not Detect) Parainfluenza 2 (PCR) (Not Detect) Parainfluenza 3 (PCR) (Not Detect) Parainfluenza 4 (PCR) (Not Detect) RSV (PCR) (Not Detect) Entero/Rhino (PCR) (Not Detect) Imaging Data CT scan - chest: Radiologist's Impression: nt: Annie Garcia MR#: [id number] : 1980 Acct:[id number] Age/Sex: 42 / F Date of Service: 09/10/22 Loc: ED Accession Number: [id number] ?? Procedure: CT angio chest PE protocol Ordering Provider: Briseida Frankel D.O. PROCEDURE:? CT ANGIO CHEST PE PROTOCOL ? INDICATIONS:? severe hypoxia ? TECHNIQUE:? After the administration of intravenous contrast, 2 mm thick sections acquired from the pulmonary apices to the posterior costophrenic angles.? For radiation dose reduction, the following was used:? automated exposure control, adjustment of mA and/or kV according to patient size.? ? COMPARISON:? [facility], CT, CT ANGIO CHEST PE PROTOCOL, 08/30/2022, 22:07 ? FINDINGS:? Image quality:? Excellent.? ? Pulmonary arteries:? Pulmonary arteries are normal in size, and demonstrate no intraluminal filling defects to suggest central pulmonary embolism.? ? Lungs and pleura:? Right lower lobe smooth 7 mm ovoid nodule remains unchanged.? There is now bibasilar atelectasis and or infiltrate with small right pleural effusion, new from the prior. ? Mediastinum:? Heart size is normal, without pericardial effusion.? No mediastinal or hilar adenopathy.? Thoracic aorta is normal in caliber and enhancement.? Esophagus is normal in caliber, without hiatal hernia.? ? Bones and chest wall:? Lobular mass in the right breast remains unchanged ? Abdomen:? Visualized upper abdominal solid organs appear normal in the early arterial phase of enhancement.? ? IMPRESSION:? ? 1. No evidence of pulmonary embolism, aortic dissection or aneurysm ? 2. Bibasilar atelectasis and or infiltrate greater on the right is new from prior exam. ? 3. Stable right breast mass lesion? ? ? Approved by: Ezekiel Mcarthur M.D. on 09/10/2022 at 12:20? [facility] Narrative Medical decision making narrative: Patient does have some improvement in her breathing with albuterol. Plan for DuoNeb, 20 mg albuterol and Solu-Medrol. Respiratory panel, cardiac workup including D-dimer. Patient did have a CTA which was negative the end of August but patient is having some hypoxia with no known asthma history. She does have a history of vaping so this could be contributing. Chest x-ray does not show obvious pneumothorax or acute process, some nonspecific bronchial wall thickening. Patient had improvement of her symptoms with albuterol, DuoNeb and Solu-Medrol but is still hypoxic placed on oxygen but was still hypoxic was placed on high-flow O2 and had ABG prior to this which shows primary respiratory alkalosis with a PO2 of 59, pH of 7.427, pCO2 of 37 and bicarb of 24. Patient's troponin and BNP are not elevated D-dimer is 707, patient's CBC, CMP and respiratory panel do not show clear source. Lactate was negative. Patient did have some wheeze on exam and it has improved with nebs. She is moving air appropriately on examination. We had difficulty with IV access so unable to obtain CT PE but patient was initiated on heparin for potential pulmonary emboli, respiratory panel is negative today for COVID, influenza or other viral illnesses. Patient has some discomfort with pressure from the high-flow but she states her breathing feels much improved. She did have some pain medicine in her back discomfort resolved. Plan for admission to ICU, we did difficulty with IV access for CT PE but patient does have an IV. She is receiving heparin. She is much more comfortable currently on high-flow on repeat evaluation and awaiting DI service for mid or PICC line to be placed. Discussed with hospitalist service, nurse practitioner Oswadl, she asked that we hold the patient until CT angio was obtained in case there is right heart strain and a large PE that would require intervention as this would require transfer. Patient signed out to Dr. Frankel while awaiting DI for additional access and CTA. Jostin-patient signed out to me by Dr. Echols. I have seen evaluated patient myself. She is currently on high-flow hypoxic with a presumed pulmonary embolism. Her workup is negative she has mildly elevated dimer at 7:07 a.m. within negative viral panel. She has no evidence of heart strain with negative troponin however on known reason why she is requiring high flow. Very difficult IV start she does have 1 peripheral in her shoulder. Multiple attempts is for peripheral IV including myself. I would did get a line on the right side however in CT it blew. DI PICC nurse is coming but is a couple hours away. She is prophylaxis started on heparin drip. CT for pulmonary embolism is negative. She again is having some pain she is not really tolerating high-flow because it makes her anxious. She is given a touch of Ativan. Repeat troponin and lactate along the ABG are ordered. She still is hypoxic however it is unclear why. 2- troponins., negative PE study negative viral panel unclear why she is hypoxic. She is not sedated she is awake and alert. She does have some mild atelectasis in her right lower lobe but does not correlate with the amount of hypoxia she is having. Dr. Can accepts patient Critical Care Time <Zo Echols, DO - Last Filed: 09/15/22 08:34> Critical Care Time Critical Care Time: Yes Attestation: The high probability of a clinically significant, sudden or life threatening deterioration of the [cardiac, pulm] system(s) required my full and direct attention, intervention and personal management. The aggregate critical care time was [] minutes. This time is in addition to time spent performing reported procedures but includes the following: [x] Data Review and interpretation [x] Patient assessment and monitoring of vital signs [x] Documentation [x] Medication orders and management <Briseida Frankel DO - Last Filed: 09/10/22 15:12> Critical Care Time Total Critical Care Time: 60 Attestation: The high probability of a clinically significant, sudden or life threatening deterioration of the [cardiac, pulm] system(s) required my full and direct attention, intervention and personal management. The aggregate critical care time was 60 minutes. This time is in addition to time spent performing reported procedures but includes the following: [x] Data Review and interpretation [x] Patient assessment and monitoring of vital signs [x] Documentation [x] Medication orders and management Discharge Plan Departure Patient Disposition: Admitted As Inpatient Clinical Impression: Acute respiratory failure with hypoxia Admit Date/Time: 09/10/22 14:15 Admit Provider: Parish Can
[2022-09-10] MEDS: methylPREDNISolone 125 MG/2 ML VIAL IV (02:31)
[2022-09-10 02:40] LABS: Add Manual Diff / Slide Review NO; Basophils Absolute Auto 200 /uL (0-100); Eosinophils Absolute Auto 100 /uL (0-450); Eosinophils Percent Auto 1.3 % (2-4); Hemoglobin 13.2 g/dL (12.0-16.0); Lymphocytes Absolute Auto 2300 /uL (1100-4500); Lymphocytes Percent Auto 23.1 % (25-40); Mean Corpuscular HGB Conc 32.9 % (30-36); Mean Corpuscular Hemoglobin 27.5 PG (26-34); Mean Corpuscular Volume 83.6 fL (80-100); Monocytes Absolute Auto 500 /uL (0-900); Monocytes Percent Auto 4.7 % (3-14); Neutrophils Absolute Auto 6900 /uL (1500-7000); Neutrophils Percent Auto 68.9 % (50-75); Platelet Count 288 X10^3/uL (150-400); Red Blood Cell Count 4.78 X10^6/uL (4.0-5.2); Red Cell Distribution Width 14.3 % (11.6-14.8); White Blood Cell Count 10.1 X10^3/uL (4.5-11.0)
[2022-09-10] MEDS: ALBUTEROL/IPRATROPIUM 3 ML AMPUL INH (02:42)
[2022-09-10 02:43] LABS: D Dimer 707 ng/ml (<500)
[2022-09-10 02:46] LABS: Lipase 88 U/L (23-300)
[2022-09-10 02:48] LABS: Alanine Aminotransferase 17 IU/L (<35); Albumin 4.4 g/dL (3.5-5.0); Albumin Globulin Ratio 1.2 (1.0-2.8); Alkaline Phosphatase 69 U/L (38-126); Aspartate Aminotransferase 24 IU/L (14-36); BUN Creatinine Ratio 21.6 (6-22); Bilirubin Total 0.4 mg/dL (0.2-1.3); Blood Urea Nitrogen 16 mg/dL (7-17); Calcium 8.7 mg/dL (8.4-10.2); Carbon Dioxide 28 mmol/L (22-32); Chloride 102 mmol/L (98-107); Creatine Kinase 58 U/L (30-135); Estimated Glomerular Filt Rate > 60 mL/min (>60); Globulin 3.8 g/dL (1.7-4.1); Glucose 107 mg/dL (70-100); HEMOLYSIS 20 (0-50); Lactate (Lactic Acid) 0.9 mmol/L (0.7-2.1); Sodium 139 mmol/L (137-145); Total Protein 8.2 g/dL (6.3-8.2)
[2022-09-10 02:59] LABS: NT-proBNP (BNP-Adult 18+) 20 pg/mL (<125); Troponin I < 0.012 ng/mL (0.01-0.034)
[2022-09-10] MEDS: KETOROLAC 30 MG/ML VIAL 15 MG IV (03:30)
[2022-09-10] MEDS: MORPHINE 4 MG/ML INJ IV ×2 (03:45→13:27)
[2022-09-10 04:03] LABS: Adenovirus Not Detected (Not Detect); B. parapertussis Not Detected (Not Detecte); Bordetella pertussis Not Detected (Not Detecte); Chlamydophila pneumoniae Not Detected (Not Detect); Coronavirus 229E Not Detected (Not Detect); Coronavirus HKU1 Not Detected (Not Detect); Coronavirus NL 63 Not Detected (Not Detect); Coronavirus OC43 Not Detected (Not Detect); Human Metapneumovirus Not Detected (Not Detect); Human Rhinovirus/Enterovirus Not Detected (Not Detect); Influenza A Not Detected (Not Detect); Influenza B Not Detected (Not Detect); Mycoplasma pneumoniae Not Detected (Not Detect); Parainfluenza Virus 1 Not Detected (Not Detect); Parainfluenza Virus 2 Not Detected (Not Detect); Parainfluenza Virus 3 Not Detected (Not Detect); Parainfluenza Virus 4 Not Detected (Not Detect); Respiratory Syncytial Virus Not Detected (Not Detect); SARS- CoV-2 Not Detected (Not Detecte)
[2022-09-10] MEDS: HEPARIN 5,000 UNIT/ML VIAL 5800 UNIT IV (04:15)
[2022-09-10] MEDS: HEPARIN DRIP 25,000 UNIT/500 ML IV.SOLN 26.127 UNIT IV (04:16)
[2022-09-10 04:17] LABS: HCO3 ABG 25 mmol/L (22-26); Oxygen Saturation ABG 91 % (95-100); PCO2 ABG 37.3 mmHg (35-45); PO2 ABG 59 mmHg (80-100); TCO2 ABG 26 mmol/L (21-31); pH ABG 7.43 (7.35-7.45)
--- NOTE | 2022-09-10 04:20 | PC.NURSE ---
Heparin doses checked per ANIKA Garcia prior to administration
[2022-09-10 04:24] LABS: PTT Partial Thromboplastin Tim 25 SECONDS (26-36)
[2022-09-10] MEDS: LORazepam 2 MG/ML INJ 0.5 MG IV ×2 (04:30→13:02)
[2022-09-10 07:32] LABS: Pregnancy Test Serum,Qual Negative (Negative)
[2022-09-10] MEDS: ACETAMINOPHEN 325 MG TABLET 975 MG PO (08:00)
--- NOTE | 2022-09-10 10:37 | DI.CT.S_ITS ---
PROCEDURE: CT ANGIO CHEST PE PROTOCOL INDICATIONS: severe hypoxia TECHNIQUE: After the administration of intravenous contrast, 2 mm thick sections acquired from the pulmonary apices to the posterior costophrenic angles. For radiation dose reduction, the following was used: automated exposure control, adjustment of mA and/or kV according to patient size. COMPARISON: [facility], [place], CT ANGIO CHEST PE PROTOCOL, 08/30/2022, 22:07 FINDINGS: Image quality: Excellent. Pulmonary arteries: Pulmonary arteries are normal in size, and demonstrate no intraluminal filling defects to suggest central pulmonary embolism. Lungs and pleura: Right lower lobe smooth 7 mm ovoid nodule remains unchanged. There is now bibasilar atelectasis and or infiltrate with small right pleural effusion, new from the prior. Mediastinum: Heart size is normal, without pericardial effusion. No mediastinal or hilar adenopathy. Thoracic aorta is normal in caliber and enhancement. Esophagus is normal in caliber, without hiatal hernia. Bones and chest wall: Lobular mass in the right breast remains unchanged Abdomen: Visualized upper abdominal solid organs appear normal in the early arterial phase of enhancement. IMPRESSION: 1. No evidence of pulmonary embolism, aortic dissection or aneurysm 2. Bibasilar atelectasis and or infiltrate greater on the right is new from prior exam. 3. Stable right breast mass lesion Approved by: Ezekiel Mcarthur M.D. on 09/10/2022 at 12:20
[2022-09-10 11:54] LABS: PTT Partial Thromboplastin Tim 85 SECONDS (26-36)
[2022-09-10 14:02] LABS: Troponin I < 0.012 ng/mL (0.01-0.034)
[2022-09-10 14:55] LABS: Fractionated Inspired Oxygen 75; HCO3 ABG 24 mmol/L (22-26); Oxygen Saturation ABG 95 % (95-100); PCO2 ABG 36.5 mmHg (35-45); PO2 ABG 74 mmHg (80-100); TCO2 ABG 25 mmol/L (21-31); pH ABG 7.43 (7.35-7.45)
--- NOTE | 2022-09-10 15:34 | PM.HP.1 ---
History of Present Illness History of Present Illness Date Patient Seen: 09/10/22 Time Patient Seen: 15:00 Chief complaint: rt. side abd/back pain/ER visit this week Narrative: This is a 42 year old female, with PMH of remote IVDU (approx 6 yrs ago), renal abscess who presents with shortness of breath, cough, and chest wall pain worsening over the past month. Patient states she started having a chronic non-productive cough about 1 month ago. Her cough was so bad it caused her severe rib pain and it was difficult to take a deep breath in. Her pain is under her R shoulder blade on the R and does wrap around to the front occasionally. It worsens with deep breaths and movement. She has chronic LE ankle swelling that is not worse recently. She denies any nausea, vomiting, or abdominal pain. She has had no fever or rashes. She was in the ER a couple of days ago when she developed worsened productive cough (now about 4-5 days ago) and had one episode where is was blood tinged with small specks of blood on a yellow-brown tinged sputum. She does complain of some sinus pressure but no rhinorrhea or sore throat. Her son was sick and was in urgent care with similar symptoms and was told he had a bacterial/viral thing. She has a cat that brings in rodents, birds sometimes but she cleans this up with gloves and disinfects most of the time. She has not had any substance use since her son was born about 6 years ago.No known occupational exposures. In the emergency room, patient was hypoxic on room air. She was on heated high flow in the emergency room. There were delays in IV placement, and with concern for possible PE she was started on heparin infusion. She was mildly tachycardic any tachypnic, but afebrile and normotensive. CXR was unremarkable. CT scan did not show a PE, heparin was stopped. She also has a R breast mass, which was seen on her prior ER visit and is stable since then. There is a small consolidation and fluid in her R lung base that was not present a few days ago. She was admitted for further evaluation of her acute repiratory failure with hypoxia. Patient History Medical History (Updated 09/10/22 @ 15:39 by Parish Can DO) IVDU (intravenous drug user) Renal abscess Surgical History (Updated 09/10/22 @ 15:39 by Parish Can DO) H/O: Family & Social History Family History (Updated 09/10/22 @ 15:51 by Parish Can DO) Family/Other Diabetes mellitus Mother No pertinent past medical history Safety & Behavioral: Feels Safe in Current Yes Environment Been Physically Hurt or No Threatened By a Person Tobacco & Substance use: Smoking Status Former smoker Substance Use Type heroin,former substance user Meds Home Medications and Allergies Home Medications Medication Instructions Recorded Confirmed Type benzonatate 100 mg capsule 100 mg PO TID PRN cough #20 caps 08/31/22 09/10/22 Rx Allergies Allergy/AdvReac Type Severity Reaction Status Date / Time No Known Drug Allergies Allergy Verified 08/30/22 21:38 Review of Systems Review of Systems Narrative: All other systems reviewed with the patient and are negative unless otherwise stated. Exam Vital Signs (past 8 hours): - 09/10/22 08:00 09/10/22 08:30 09/10/22 07:35 Temperature Pulse Rate 92 H 91 H 98 H Respiratory Rate 20 20 18 Blood Pressure Pulse Oximetry 96 96 95 Oxygen Delivery Method High Flow Nasal Cannula Oxygen Flow Rate 40 09/10/22 08:34 09/10/22 08:34 09/10/22 08:45 Temperature Pulse Rate 93 H 94 H Respiratory Rate 21 24 Blood Pressure 119/76 Pulse Oximetry 96 94 Oxygen Delivery Method Oxygen Flow Rate 09/10/22 09:00 09/10/22 09:15 09/10/22 09:30 Temperature Pulse Rate 92 H 95 H 87 Respiratory Rate 26 H 26 H 21 Blood Pressure Pulse Oximetry 98 92 96 Oxygen Delivery Method Oxygen Flow Rate 09/10/22 09:46 09/10/22 09:45 09/10/22 10:00 Temperature Pulse Rate 84 83 85 Respiratory Rate 18 16 23 Blood Pressure Pulse Oximetry 94 97 99 Oxygen Delivery Method Oxygen Flow Rate 09/10/22 10:15 09/10/22 10:30 09/10/22 10:45 Temperature Pulse Rate 81 102 H 100 H Respiratory Rate 21 22 Blood Pressure Pulse Oximetry 98 92 Oxygen Delivery Method Oxygen Flow Rate 09/10/22 10:46 09/10/22 10:46 09/10/22 11:00 Temperature Pulse Rate 99 H 85 Respiratory Rate 22 19 Blood Pressure 121/78 Pulse Oximetry 97 99 Oxygen Delivery Method Oxygen Flow Rate 09/10/22 11:15 09/10/22 11:30 09/10/22 11:45 Temperature Pulse Rate 93 H 93 H 88 Respiratory Rate 20 20 Blood Pressure Pulse Oximetry 99 98 100 Oxygen Delivery Method Oxygen Flow Rate 09/10/22 12:10 09/10/22 14:23 09/10/22 12:00 Temperature Pulse Rate 90 96 H 91 H Respiratory Rate 18 18 Blood Pressure 123/78 Pulse Oximetry 99 93 99 Oxygen Delivery Method Oxygen Flow Rate 09/10/22 12:19 09/10/22 12:21 09/10/22 12:21 Temperature Pulse Rate 84 94 H Respiratory Rate Blood Pressure 101/53 L Pulse Oximetry 100 100 Oxygen Delivery Method Oxygen Flow Rate 09/10/22 12:30 09/10/22 12:45 09/10/22 13:00 Temperature Pulse Rate 92 H 89 Respiratory Rate 25 H 25 H Blood Pressure 137/83 Pulse Oximetry 98 91 Oxygen Delivery Method Oxygen Flow Rate 09/10/22 13:00 09/10/22 13:15 09/10/22 13:30 Temperature Pulse Rate 87 109 H 88 Respiratory Rate 21 Blood Pressure Pulse Oximetry 92 93 Oxygen Delivery Method Oxygen Flow Rate 09/10/22 13:45 09/10/22 14:00 09/10/22 14:00 Temperature Pulse Rate 85 Respiratory Rate 23 Blood Pressure 118/58 L Pulse Oximetry 96 96 Oxygen Delivery Method High Flow Nasal Cannula Oxygen Flow Rate 50 09/10/22 14:17 09/10/22 14:38 09/10/22 14:53 Temperature 99.6 F Pulse Rate 102 H 101 H Respiratory Rate 28 H 30 H Blood Pressure 123/78 Pulse Oximetry 98 94 Oxygen Delivery Method Heated High Flow Oxygen Flow Rate 40 Oxygen Delivery Method Heated High Flow Oxygen Flow Rate 40 Narrative Exam Narrative: General:? Patient is well developed and well nourished, mildly anxious female appears comfortable, nasal cannula around chin, O2 at 88%. HEENT:? Normocephalic, atraumatic, extraocular muscles intact, oral pharynx is clear and mucous membranes are moist. Neck: supple and symmetric, trachea is midline, no cervical adenopathy. Negative for JVD Chest:? Normal AP diameter and contour without kyphoscoliosis, no tachypnea, equal chest rise bilaterally. Lungs:? CTA b/l no wheezing rhonchi or rales. Cardio:?RRR no m/r/g. Abdomen: S NT ND. No CVA tenderness. Musculoskeletal:? Muscle strength and tone are equal within normal limits, no deformity. Extremities: No edema or joint effusions. No cyanosis or clubbing. Skin:? Pale,? Warm to touch,dry and intact without rashes, ulcerations or petechiae.? Neuro:? Alert and orientated x3,? sensation to touch intact in all extremities, no gross deficits noted of cranial nerves. Psych:? Patient has a well-kept appearance, appropriate affect, mental status attitude thought context and judgment are appropriate for age. Objective ECG Impression: Normal sinus rhythm Imaging Chest x-ray: My impression: Unremarkable radiograph of the chest. Labs Result Diagrams: 09/10/22 02:24 09/10/22 02:24 Labs: Laboratory Results - last 24 hr 09/10/22 09/10/22 09/10/22 02:24 02:24 02:24 WBC 10.1 RBC 4.78 Hgb 13.2 Hct 40.0 MCV 83.6 MCH 27.5 MCHC 32.9 RDW 14.3 Plt Count 288 Neut % (Auto) 68.9 Lymph % (Auto) 23.1 L [place] % (Auto) 4.7 Eos % (Auto) 1.3 L Baso % (Auto) 2.0 Neut # (Auto) 6900 Lymph # (Auto) 2300 [place] # (Auto) 500 Eos # (Auto) 100 Baso # (Auto) 200 H APTT D-Dimer ABG pH ABG pCO2 ABG pO2 ABG HCO3 ABG Total CO2 ABG O2 Saturation ABG Base Excess FiO2 Sodium 139 Potassium 4.0 Chloride 102 Carbon Dioxide 28 BUN 16 Creatinine 0.74 Estimated GFR > 60 BUN/Creatinine Ratio 21.6 Glucose 107 H Lactate 0.9 Calcium 8.7 Total Bilirubin 0.4 AST 24 ALT 17 Alkaline Phosphatase 69 Total Creatine Kinase CK-MB (CK-2) CK-MB (CK-2) Rel Index Troponin I NT-Pro-B Natriuret Pep Total Protein 8.2 Albumin 4.4 Globulin 3.8 Albumin/Globulin Ratio 1.2 Lipase Serum , Qual Chlamy pneumoniae PCR Adenovirus (PCR) B. pertussis DNA (PCR) B.parapertussis DNA PCR Coronavirus OC43 (PCR) Coronavirus HKU1 (PCR) Coronavirus 229E (PCR) SARS-CoV-2 (PCR) Coronavirus NL63 (PCR) Human Metapneumovir PCR Influenza Type A (PCR) Influenza Type B (PCR) M. pneumoniae (PCR) Parainfluenza 1 (PCR) Parainfluenza 2 (PCR) Parainfluenza 3 (PCR) Parainfluenza 4 (PCR) RSV (PCR) Entero/Rhino (PCR) 09/10/22 09/10/22 09/10/22 02:24 02:24 02:24 WBC RBC Hgb Hct MCV MCH MCHC RDW Plt Count Neut % (Auto) Lymph % (Auto) [place] % (Auto) Eos % (Auto) Baso % (Auto) Neut # (Auto) Lymph # (Auto) [place] # (Auto) Eos # (Auto) Baso # (Auto) APTT D-Dimer 707 H ABG pH ABG pCO2 ABG pO2 ABG HCO3 ABG Total CO2 ABG O2 Saturation ABG Base Excess FiO2 Sodium Potassium Chloride Carbon Dioxide BUN Creatinine Estimated GFR BUN/Creatinine Ratio Glucose Lactate Calcium Total Bilirubin AST ALT Alkaline Phosphatase Total Creatine Kinase 58 CK-MB (CK-2) TNP CK-MB (CK-2) Rel Index TNP Troponin I < 0.012 NT-Pro-B Natriuret Pep 20 Total Protein Albumin Globulin Albumin/Globulin Ratio Lipase 88 Serum , Qual Chlamy pneumoniae PCR Adenovirus (PCR) B. pertussis DNA (PCR) B.parapertussis DNA PCR Coronavirus OC43 (PCR) Coronavirus HKU1 (PCR) Coronavirus 229E (PCR) SARS-CoV-2 (PCR) Coronavirus NL63 (PCR) Human Metapneumovir PCR Influenza Type A (PCR) Influenza Type B (PCR) M. pneumoniae (PCR) Parainfluenza 1 (PCR) Parainfluenza 2 (PCR) Parainfluenza 3 (PCR) Parainfluenza 4 (PCR) RSV (PCR) Entero/Rhino (PCR) 09/10/22 09/10/22 09/10/22 02:24 02:24 03:28 WBC RBC Hgb Hct MCV MCH MCHC RDW Plt Count Neut % (Auto) Lymph % (Auto) [place] % (Auto) Eos % (Auto) Baso % (Auto) Neut # (Auto) Lymph # (Auto) [place] # (Auto) Eos # (Auto) Baso # (Auto) APTT 25 L D-Dimer ABG pH 7.43 ABG pCO2 37.3 ABG pO2 59 L ABG HCO3 25 ABG Total CO2 26 ABG O2 Saturation 91 L ABG Base Excess 0.0 FiO2 Sodium Potassium Chloride Carbon Dioxide BUN Creatinine Estimated GFR BUN/Creatinine Ratio Glucose Lactate Calcium Total Bilirubin AST ALT Alkaline Phosphatase Total Creatine Kinase CK-MB (CK-2) CK-MB (CK-2) Rel Index Troponin I NT-Pro-B Natriuret Pep Total Protein Albumin Globulin Albumin/Globulin Ratio Lipase Serum , Qual Chlamy pneumoniae PCR Not detected Adenovirus (PCR) Not detected B. pertussis DNA (PCR) Not detected B.parapertussis DNA PCR Not detected Coronavirus OC43 (PCR) Not detected Coronavirus HKU1 (PCR) Not detected Coronavirus 229E (PCR) Not detected SARS-CoV-2 (PCR) Not detected Coronavirus NL63 (PCR) Not detected Human Metapneumovir PCR Not detected Influenza Type A (PCR) Not detected Influenza Type B (PCR) Not detected M. pneumoniae (PCR) Not detected Parainfluenza 1 (PCR) Not detected Parainfluenza 2 (PCR) Not detected Parainfluenza 3 (PCR) Not detected Parainfluenza 4 (PCR) Not detected RSV (PCR) Not detected Entero/Rhino (PCR) Not detected 09/10/22 09/10/22 09/10/22 06:38 11:30 13:30 WBC RBC Hgb Hct MCV MCH MCHC RDW Plt Count Neut % (Auto) Lymph % (Auto) [place] % (Auto) Eos % (Auto) Baso % (Auto) Neut # (Auto) Lymph # (Auto) [place] # (Auto) Eos # (Auto) Baso # (Auto) APTT 85 H* D D-Dimer ABG pH ABG pCO2 ABG pO2 ABG HCO3 ABG Total CO2 ABG O2 Saturation ABG Base Excess FiO2 Sodium Potassium Chloride Carbon Dioxide BUN Creatinine Estimated GFR BUN/Creatinine Ratio Glucose Lactate Calcium Total Bilirubin AST ALT Alkaline Phosphatase Total Creatine Kinase CK-MB (CK-2) CK-MB (CK-2) Rel Index Troponin I < 0.012 NT-Pro-B Natriuret Pep Total Protein Albumin Globulin Albumin/Globulin Ratio Lipase Serum , Qual Negative Chlamy pneumoniae PCR Adenovirus (PCR) B. pertussis DNA (PCR) B.parapertussis DNA PCR Coronavirus OC43 (PCR) Coronavirus HKU1 (PCR) Coronavirus 229E (PCR) SARS-CoV-2 (PCR) Coronavirus NL63 (PCR) Human Metapneumovir PCR Influenza Type A (PCR) Influenza Type B (PCR) M. pneumoniae (PCR) Parainfluenza 1 (PCR) Parainfluenza 2 (PCR) Parainfluenza 3 (PCR) Parainfluenza 4 (PCR) RSV (PCR) Entero/Rhino (PCR) 09/10/22 13:47 WBC RBC Hgb Hct MCV MCH MCHC RDW Plt Count Neut % (Auto) Lymph % (Auto) [place] % (Auto) Eos % (Auto) Baso % (Auto) Neut # (Auto) Lymph # (Auto) [place] # (Auto) Eos # (Auto) Baso # (Auto) APTT D-Dimer ABG pH 7.43 ABG pCO2 36.5 ABG pO2 74 L ABG HCO3 24 ABG Total CO2 25 ABG O2 Saturation 95 ABG Base Excess 0.0 FiO2 75 Sodium Potassium Chloride Carbon Dioxide BUN Creatinine Estimated GFR BUN/Creatinine Ratio Glucose Lactate Calcium Total Bilirubin AST ALT Alkaline Phosphatase Total Creatine Kinase CK-MB (CK-2) CK-MB (CK-2) Rel Index Troponin I NT-Pro-B Natriuret Pep Total Protein Albumin Globulin Albumin/Globulin Ratio Lipase Serum , Qual Chlamy pneumoniae PCR Adenovirus (PCR) B. pertussis DNA (PCR) B.parapertussis DNA PCR Coronavirus OC43 (PCR) Coronavirus HKU1 (PCR) Coronavirus 229E (PCR) SARS-CoV-2 (PCR) Coronavirus NL63 (PCR) Human Metapneumovir PCR Influenza Type A (PCR) Influenza Type B (PCR) M. pneumoniae (PCR) Parainfluenza 1 (PCR) Parainfluenza 2 (PCR) Parainfluenza 3 (PCR) Parainfluenza 4 (PCR) RSV (PCR) Entero/Rhino (PCR) Assessment & Plan Assessment & Plan narrative: 1. Acute respiratory failure with hypoxia - unclear etiology initially. Most likely cause is atelectasis from rib strain with recent coughing, though this should not cause such profound hypoxia. PE study is negative x2. ABG showed pO2 of 59 on 45% or paO2 / FiO2 of 131. - also possible is cardiac etiology, bacterial pneumonia after recent viral illness, lung malignancy given breast mass (less likely), autoimmune process (less likely) - check ESR, CRP, JANA, ANCA panel - treat for bacterial pneumonia with ceftriaxone and azithromycin - doubt COPD / asthma given lung appearance and age and lack of improvement with nebulizer treatments in the ER. - echocardiogram ordered. - appreciate respiratory therapy. Goal O2 90-96% on supplemental therapy. Wean as tolerated. 2. R breast mass - outpatient follow up with PCP or surgery for mammography and breast ultrasound. Code: Full, surrogate: mother DVT: lovenox daily Dispo: Admitted as inpatient due to the degree of respiratory failure and expected stay beyond two midnights. I have utilized all available immediate resources to obtain, update, or review the patient's current medications. Time Spent With Patient Critical Care time: I spent a total of [] minutes of critical care time on this patient's care today; this time is exclusive of procedural time.
[2022-09-10 16:05] LABS: Erythrocyte Sedimentation Rate 8 MM/HR (0-20)
[2022-09-10 16:07] LABS: C-Reactive Protein Quant 1.5 mg/dL (<1.0)
[2022-09-10 16:33] LABS: PTT Partial Thromboplastin Tim 29 SECONDS (26-36)
[2022-09-10] MEDS: cefTRIAXone 1,000 MG in SODIUM CHLORIDE 0.9% 100 ML 200 MG IV (17:02)
[2022-09-10] MEDS: LORazepam 2 MG/ML INJ 1 MG IV (17:02)
[2022-09-10] MEDS: AZITHROMYCIN 500 MG in DEXTROSE 5% IN WATER 250 ML 250 MG IV (17:15)
[2022-09-10] MEDS: OXYCODONE IR 10 MG TABLET PO (18:00)
[2022-09-10] MEDS: OXYCODONE IR 5 MG TABLET PO (21:53)
[2022-09-11] VITALS: BP 107/64; PULSE 90; RESP 17; TEMP 37.1; O2SAT 93
[2022-09-11] MEDS: OXYCODONE IR 10 MG TABLET PO (01:39)
[2022-09-11] MEDS: ONDANSETRON 4 MG/2 ML INJ IV (01:39)
[2022-09-11 04:00] VITALS: BP 122/63; PULSE 98; RESP 17; TEMP 37.4; O2SAT 91
[2022-09-11] MEDS: BENZONATATE 100 MG CAPSULE PO (04:18)
[2022-09-11] MEDS: HYDROMORPHONE 1 MG INJ IV (04:18)
[2022-09-11 04:50] LABS: Alanine Aminotransferase 16 IU/L (<35); Albumin 4.1 g/dL (3.5-5.0); Albumin Globulin Ratio 1.1 (1.0-2.8); Alkaline Phosphatase 62 U/L (38-126); Aspartate Aminotransferase 22 IU/L (14-36); BUN Creatinine Ratio 24.2 (6-22); Bilirubin Total 0.5 mg/dL (0.2-1.3); Blood Urea Nitrogen 16 mg/dL (7-17); Calcium 8.7 mg/dL (8.4-10.2); Carbon Dioxide 25 mmol/L (22-32); Chloride 103 mmol/L (98-107); Estimated Glomerular Filt Rate > 60 mL/min (>60); Globulin 3.7 g/dL (1.7-4.1); Glucose 100 mg/dL (70-100); HEMOLYSIS 46 (0-50); Magnesium 2.1 mg/dL (1.6-2.3); Sodium 138 mmol/L (137-145); Total Protein 7.8 g/dL (6.3-8.2)
[2022-09-11 04:53] LABS: Add Manual Diff / Slide Review NO; Basophils Absolute Auto 0 /uL (0-100); Basophils Percent Auto 0.2 % (0-2); Eosinophils Absolute Auto 0 /uL (0-450); Eosinophils Percent Auto 0.2 % (2-4); Hematocrit 37.4 % (36-46); Hemoglobin 12.4 g/dL (12.0-16.0); Lymphocytes Absolute Auto 2100 /uL (1100-4500); Lymphocytes Percent Auto 17.3 % (25-40); Mean Corpuscular HGB Conc 33.2 % (30-36); Mean Corpuscular Hemoglobin 27.8 PG (26-34); Mean Corpuscular Volume 83.8 fL (80-100); Monocytes Absolute Auto 700 /uL (0-900); Monocytes Percent Auto 6.1 % (3-14); Neutrophils Absolute Auto 9100 /uL (1500-7000); Neutrophils Percent Auto 76.2 % (50-75); Platelet Count 320 X10^3/uL (150-400); Red Blood Cell Count 4.47 X10^6/uL (4.0-5.2); Red Cell Distribution Width 14.5 % (11.6-14.8)
[2022-09-11 05:53] LABS: TSH w/ Reflex to FT4 0.84 uIU/mL (0.47-4.68)
[2022-09-11 08:00] VITALS: BP 114/72; PULSE 104; RESP 18; TEMP 37.1; O2SAT 92
--- NOTE | 2022-09-11 09:02 | CM.DANOTE ---
Addendum entered by Yesenia Mixon R.N. 09/11/22 10:08: Confirmed that patient left home against medical advice. Original Note: DCP: Case received, EMR reviewed and met with patient. Patient's mother was at bedside. Introduced self and role. Was able to obtain some information from patient prior to hospitalization. DCP assessment completed with information currently available. Patient is a 42 year old female who admitted yesterday afternoon to the care of the hospitalist team. PCP: None currently. Payer: confirmed: [employer]icaid. Patient came to the hospital via private vehicle secondary to having a persistent cough since April, and had had COVID at that time. Patient had also indicated that she was having some shortness of breath. Patient has history of vaping, stopped approximately a month ago, and a former IV drug user. Patient was diagnosed with acute respiratory failure with hypoxia. Met briefly with patient, she was getting ready to leave, dressed, mother in room. She is independent at her baseline, resides here in [place]. Asked her if she has a primary care provider and if she needed any resources. Patient indicated, she was recently here at the ER, and just was established with insurance, and was given provider information as to who accepts her insurance. Patient stated, I just felt to shitty to start the process. P: DCP to continue to check in. Patient may be going home at this time, have not yet seen DC orders. Will discuss further at team rounds. Yesenia Mixon RN/Verify Rep Discharge Planning/Care Management CM Discharge Assessment Start: 09/11/22 09:00 Freq: Status: Active Protocol: Document 09/11/22 09:01 (Rec: 09/11/22 09:02 [id number]) Discharge Planning Assessment Assigned Research Test Engine Operator Yesenia Mixon RN/Verify Rep Advance Directives? No History Provided By Patient,Medical Record Prior Living Arrangements House Household Members family Type of transporation used prior to Drives own vehicle admit Independent with ADL's Yes Is patient alert and oriented? Yes Caregiver for Another Yes: Patient has a son Discharge Plan Home Transportation Arrangement Family Referrals Initiated None needed Whiteboard Updated in Patient Room with No name and ext. # of Research Test Engine Operator Comment Patient getting ready to leave . Review Status In Process Next Review Type Continued Stay Review
--- NOTE | 2022-09-11 12:55 | PM.DS.1 ---
History of Present Illness History of Present Illness Date Patient Seen: 09/10/22 Time Patient Seen: 15:00 Chief complaint: rt. side abd/back pain/ER visit this week Narrative: Per admitting provider: This is a 42 year old female, with PMH of remote IVDU (approx 6 yrs ago), renal abscess who presents with shortness of breath, cough, and chest wall pain worsening over the past month. Patient states she started having a chronic non-productive cough about 1 month ago. Her cough was so bad it caused her severe rib pain and it was difficult to take a deep breath in. Her pain is under her R shoulder blade on the R and does wrap around to the front occasionally. It worsens with deep breaths and movement. She has chronic LE ankle swelling that is not worse recently. She denies any nausea, vomiting, or abdominal pain. She has had no fever or rashes. She was in the ER a couple of days ago when she developed worsened productive cough (now about 4-5 days ago) and had one episode where is was blood tinged with small specks of blood on a yellow-brown tinged sputum. She does complain of some sinus pressure but no rhinorrhea or sore throat. Her son was sick and was in urgent care with similar symptoms and was told he had a bacterial/viral thing. She has a cat that brings in rodents, birds sometimes but she cleans this up with gloves and disinfects most of the time. She has not had any substance use since her son was born about 6 years ago.No known occupational exposures. In the emergency room, patient was hypoxic on room air. She was on heated high flow in the emergency room. There were delays in IV placement, and with concern for possible PE she was started on heparin infusion. She was mildly tachycardic any tachypnic, but afebrile and normotensive. CXR was unremarkable. CT scan did not show a PE, heparin was stopped. She also has a R breast mass, which was seen on her prior ER visit and is stable since then. There is a small consolidation and fluid in her R lung base that was not present a few days ago. She was admitted for further evaluation of her acute repiratory failure with hypoxia. Discharge Providers Provider Date of admission: 09/10/22 14:15 Discharge Date: 09/11/22 Consults: 09/10/22 02:30 Consult After Hours PICC Line RN Stat Comment: Discharge provider: Zia العلي MD Summary Hospital Course Discharge Diagnosis: 1. Acute respiratory failure with hypoxia 2. Pneumonia 3. Right breas mass Hospital Course: Ms. Garcia came in to the hospital with coughing, shortness of breath and etiology was in process of being worked up. She was started on treatment for pneumonia. The following day prior to having full workup she decided to leave AMA. She was advised she may worsen including worsening respiratory distress and possibly even . She expressed understanding. She was encouraged to follow up with her PCP as soon as possible, and to return to the hospital if worsening. She was given a prescription for antibiotics for concern for pneumonia. Exam Vital Signs (past 8 hours): Fraction of Inspired Oxygen 36 SaO2/FiO2 Ratio 263 Oxygen Delivery Method Nasal Cannula Oxygen Flow Rate 0 Narrative Exam Narrative: GEN: awake, alert, oriented, in no distress Objective Labs Result Diagrams: 09/11/22 04:30 09/11/22 04:30 [facility] Medical History (Updated 09/10/22 @ 15:39 by Parish Can DO) IVDU (intravenous drug user) Renal abscess Surgical History (Updated 09/10/22 @ 15:39 by Parish Can DO) H/O: Family History (Updated 09/10/22 @ 15:51 by Parish Can DO) Family/Other Diabetes mellitus Mother No pertinent past medical history Social History household members: family Smoking Status: Former smoker Discharge Plan Discharge Plan Patient Disposition: Left Against Medical Advice Provider Discharge Comment: Ms. Garcia came to the hospital with trouble breathing. She was improving with treatment but left against medical advice with a prescription for antibiotics to treat pneumonia. She should continue to avoid any smoking/vaping. Discharge orders & Medications Prescriptions: New levofloxacin 750 mg tablet 750 mg PO DAILY Qty: 4 0RF Continued benzonatate 100 mg capsule 100 mg PO TID PRN (Reason: cough) Qty: 20 0RF
--- NOTE | 2022-09-11 13:13 | PC.NURSE ---
Addendum entered by Bev Alfonso R.N. 09/11/22 13:26: 09:01 Pt signed AMA form and taken out by MASK LAYOUT DESIGNER with all belongings. Original Note: 08:35 Pt states, wants to go home, she did not think she was going to get admitted and doesn't feel like anything is helping her. Educated pt about being admitted for acute respiratory failure and pneumonia and receiving antibiotics for this. Dr. Abdullahi at the bedside speaking with pt. Per Dr. العلي, give her AMA form to sign and prescription for oral antibiotics. Prescription for antibiotics given to pt and educated about taking full course of antibiotics even if she is feeling better. Removed pt IV and tele. Pt dressed and ready for d/c. Pt denied having medications held at the pharmacy here and denies having valuables held in the safe. Pt to be transported via pov with mother. Pt taken down by MASK LAYOUT DESIGNER with all belongings.
--- NOTE | 2022-09-11 13:22 | PC.NURSE ---
I charted patient check on the wrong patient. PT left AMA and was not out of the chart yet and I charted wrong. I cannot fix it on my end, so making a note.
[2022-09-13 17:38] LABS: Atypical P-ANCA Titer <1:20 titer (Neg:<1:20); C-ANCA Titer <1:20 titer (Neg:<1:20); P-ANCA Titer <1:20 titer (Neg:<1:20)
[2022-09-14 17:31] LABS: ANA Screen, IFA Positive (.)
[2022-09-23 02:44] LABS: Antimyeloperoxidase AB <0.2; Antiproteinase 3 AB <0.2
== END 2022-09-11 09:01 | disposition left against medical advice (07) | DRG 189 ==
LOC: ED 13:36 → AC 14:16 → ICU 14:17 → AC 09-11 08:01
PROVIDERS: Emergency Medicine; Admitting Provider Internal Medicine; Emergency Provider Emergency Medicine; Referring Provider Emergency Medicine; Visit Provider Internal Medicine
DX: J96.01 Acute respiratory failure with hypoxia (principal); J18.9 Pneumonia, unspecified organism; J98.11 Atelectasis; N63.10 Unspecified lump in the right breast, unspecified quadrant; Z20.822 Contact with and (suspected) exposure to COVID-19; Z87.891 Personal history of nicotine dependence; Z53.29 Procedure and treatment not carried out because of patient's decision for other reasons
CPT/HCPCS: 36415; 36600; 71046; 71275; 80053; 82550; 82805; 83520; 83605; 83690; 83735; 83880; 84443; 84484; 84703; 85025; 85379; 85651; 85730; 86038; 86140; 86256; 87070; 87205; 87633; 87797; 93005; 94640; 94762; 96365; 96366; 96375; 96376; 99284; 99291; J0696; J1170; J1644; J1885; J2060; J2270; J2405; J2930; J7613; Q9967